=== PATIENT | female | born 1970 | race Two or more races ===

== ENCOUNTER → 2024-09-24 | Outpatient (CLI) | payer MEDICAID, SELFPAY ==
[2024-09-23 14:26] LABS: HCG Qualitative,Urine Negative
--- NOTE | 2024-09-24 10:30 | XR_ITS ---
Examination: CT abdomen and pelvis without contrast. Coronal 3-D reconstructions. Sagittal 2-D reconstructions. Date and time of exam:September 24, 2024 0950 hours INDICATIONS: Pelvic pain one year CTDI: vol (mGy): 5.98 DLP: (mGycm): 306 Technique: Axial images of the abdomen have been obtained, 3 mm slice thickness Intravenous contrast material has not been administered. Low dose protocols were performed. One or more of the following dose reduction techniques were used; automated exposure control, adjustment of the mA and/or KV according to patient size, use of iterative reconstruction technique. Findings: No focal liver or splenic lesions No gallstones No pancreatic or adrenal mass No renal or ureteral calculi, no hydronephrosis Aorta normal size No bowel obstruction Normal appendix No diverticulitis Anteverted uterus No adnexal mass Contracted urinary bladder Moderate osteopenia IMPRESSION: No acute process in the abdomen or pelvis
== END | disposition home or self-care (01) ==
LOC: CCTX 09:23
PROVIDERS: PCP Registered Nurse; Referring Provider Registered Nurse; Visit Provider Registered Nurse
DX: R10.2 Pelvic and perineal pain (principal); Z32.00 Encounter for pregnancy test, result unknown
CPT/HCPCS: 74176; 81025